=== PATIENT | female | born 1950 | race Caucasian/White ===

== ENCOUNTER 2021-01-17 14:36 | Outpatient (CLI) | payer MEDICARE, OTHER | END 2021-01-17 14:37 | disposition home or self-care (01) | LOC: CSHRAD 14:36 | PROVIDERS: ATTEND Internal Medicine Rheumatology | DX: M47.9 Spondylosis, unspecified (principal); M81.0 Age-related osteoporosis without current pathological fracture; M47.814 Spondylosis without myelopathy or radiculopathy, thoracic region; M41.86 Other forms of scoliosis, lumbar region; M47.816 Spondylosis without myelopathy or radiculopathy, lumbar region | CPT/HCPCS: 72070; 72100; 72110 ==

== ENCOUNTER 2023-06-15 08:02 | Outpatient (CLI) | payer MEDICARE, OTHER | END 2023-06-15 08:03 | disposition home or self-care (01) | LOC: CSHMRI 08:02 | PROVIDERS: ATTEND Surgery | DX: M47.26 Other spondylosis with radiculopathy, lumbar region (principal); M41.86 Other forms of scoliosis, lumbar region; S22.080A Wedge compression fracture of T11-T12 vertebra, initial encounter for closed fracture | CPT/HCPCS: 36415; 72148; 80053; 82248; 82607; 82728; 82746; 83540; 83550; 83615; 84100; 84155; 84165; 84443; 84550; 85046; 85652 ==

== ENCOUNTER 2023-06-15 13:01 | Outpatient (CLI) | payer MEDICARE, OTHER | END 2023-06-15 13:02 | disposition home or self-care (01) | LOC: CSHMAMMO 13:01 | PROVIDERS: ATTEND Family Medicine | DX: Z12.31 Encounter for screening mammogram for malignant neoplasm of breast (principal); Z91.89 Other specified personal risk factors, not elsewhere classified | CPT/HCPCS: 77063; 77067 ==

== ENCOUNTER 2023-07-29 09:53 | Outpatient (CLI) | payer MEDICARE, OTHER | END 2023-07-29 09:54 | disposition home or self-care (01) | LOC: CSHRAD 09:53 | PROVIDERS: ATTEND Surgery | DX: M48.062 Spinal stenosis, lumbar region with neurogenic claudication (principal); M47.26 Other spondylosis with radiculopathy, lumbar region; S22.089A Unspecified fracture of T11-T12 vertebra, initial encounter for closed fracture; M41.9 Scoliosis, unspecified; S22.080A Wedge compression fracture of T11-T12 vertebra, initial encounter for closed fracture | CPT/HCPCS: 72070; 72100 ==

== ENCOUNTER 2023-09-01 13:36 | Outpatient (CLI) | payer MEDICARE, OTHER | END 2023-09-01 13:37 | disposition home or self-care (01) | LOC: CSHCT 13:36 | PROVIDERS: ATTEND Internal Medicine Cardiovascular Disease | DX: L97.922 Non-pressure chronic ulcer of unspecified part of left lower leg with fat layer exposed (principal); I70.209 Unspecified atherosclerosis of native arteries of extremities, unspecified extremity | CPT/HCPCS: 72191; 82565 ==

== ENCOUNTER 2023-10-05 10:19 | Outpatient (CLI) | payer MEDICARE, OTHER | END 2023-10-05 10:20 | disposition home or self-care (01) | LOC: CSHMAMMO 10:19 | PROVIDERS: ATTEND Internal Medicine Rheumatology | DX: M81.0 Age-related osteoporosis without current pathological fracture (principal) | CPT/HCPCS: 77080 ==

== ENCOUNTER 2024-05-03 09:35 | Outpatient (CLI) | payer MEDICARE, OTHER ==
[2024-05-03] MEDS ORDERED: Iopamidol 300 61% 100 ML VIAL FS ONE (10:15)
== END 2024-05-03 09:36 | disposition home or self-care (01) ==
LOC: CSHCT 09:35
PROVIDERS: ATTEND Nurse Practitioner Family
DX: L03.311 Cellulitis of abdominal wall (principal); M00.9 Pyogenic arthritis, unspecified; L02.211 Cutaneous abscess of abdominal wall; M84.454D Pathological fracture, pelvis, subsequent encounter for fracture with routine healing; K83.8 Other specified diseases of biliary tract; N13.30 Unspecified hydronephrosis
CPT/HCPCS: 74177; 82565; Q9967

== ENCOUNTER 2024-08-21 08:47 | Outpatient (CLI) | payer MEDICARE, OTHER | END 2024-08-21 08:48 | disposition home or self-care (01) | LOC: CSHMAMMO 08:47 | PROVIDERS: ATTEND Family Medicine | DX: Z12.31 Encounter for screening mammogram for malignant neoplasm of breast (principal); Z91.89 Other specified personal risk factors, not elsewhere classified | CPT/HCPCS: 77063; 77067 ==

== ENCOUNTER 2024-11-10 14:27 | Outpatient (CLI) | payer MEDICARE, OTHER | END 2024-11-10 14:28 | disposition home or self-care (01) | LOC: CSHULT 14:27 | PROVIDERS: ATTEND Family Medicine | DX: R94.6 Abnormal results of thyroid function studies (principal) | CPT/HCPCS: 76536 ==

== ENCOUNTER 2025-06-28 09:44 | Outpatient (CLI) | payer MEDICARE, OTHER | END 2025-06-28 09:45 | disposition home or self-care (01) | LOC: CSHRAD 09:44 | PROVIDERS: ATTEND Internal Medicine Rheumatology | DX: M05.771 Rheumatoid arthritis with rheumatoid factor of right ankle and foot without organ or systems involvement (principal); M05.772 Rheumatoid arthritis with rheumatoid factor of left ankle and foot without organ or systems involvement; M19.072 Primary osteoarthritis, left ankle and foot; M19.071 Primary osteoarthritis, right ankle and foot ==

== ENCOUNTER 2025-09-03 14:22 | Outpatient (CLI) | payer MEDICARE, OTHER | END 2025-09-03 14:23 | disposition home or self-care (01) | LOC: CSHMAMMO 14:22 | PROVIDERS: ATTEND Family Medicine | DX: Z12.31 Encounter for screening mammogram for malignant neoplasm of breast (principal); Z80.3 Family history of malignant neoplasm of breast; Z85.820 Personal history of malignant melanoma of skin; Z91.89 Other specified personal risk factors, not elsewhere classified | CPT/HCPCS: 77063; 77067 ==